=== PATIENT | female | born 1995 | race Hispanic/Latino ===

== ENCOUNTER → 2020-03-24 | Outpatient (CLI) | payer OTHER ==
--- NOTE | 2020-03-24 16:51 | US ---
EXAM DESCRIPTION: US GALLBLADDER: ULTRASOUND. CLINICAL HISTORY: Right upper quadrant pain COMPARISON: None. TECHNIQUE: Transabdominal scanning: Holland-scale and Doppler modes. FINDINGS: Gallbladder: Decreased size. Multiple echogenic structures with acoustic shadowing representing stones. Sludge also visualized. Largest stone 6.4 mm in diameter. Minimal fluid around the gallbladder. Wall thickening 6.5 mm. Tender with transducer pressure. Common bile duct: caliber 5.4 mm within normal limits. Liver: normal echogenicity; contour liver capsule smooth where seen. No fluid around the liver. Intrahepatic biliary ducts normal caliber. Doppler hepatopedal flow portal vein.. Normal caliber portal vein:. 7 mm. Long axis right lobe 15.4 cm. Pancreas: normal size Normal echogenicity. Duct not seen. Aorta: 1.3 cm normal caliber. Right kidney: long axis is 9.7 volume Volume 124.25 mL.. Normal cortical thickness and echogenicity. IMPRESSION: 1. Cholelithiasis with acute cholecystitis and fluid around the gallbladder wall. This can indicate impending infection/Gangrene. Common bile duct normal caliber. 2. Liver, pancreas, right kidney are unremarkable. Electronically signed by: Cristofer Batres MD 03/24/2020 4:48 PM [facility]
== END ==
LOC: US 16:00
PROVIDERS: ATTEND Nurse Practitioner Family
DX: K80.00 Calculus of gallbladder with acute cholecystitis without obstruction (principal)